=== PATIENT | female | born 1940 | race African-American/Black ===

== ENCOUNTER 2017-05-18 11:17 | Emergency (ER) | payer BC ==
[2017-05-18 11:23] VITALS: BP 151/95; BMI 35.6
[2017-05-18] MEDS ORDERED: ACETAMINOPHEN 500 MG TABLET (FP) PO ONE (12:52)
[2017-05-18] MEDS ORDERED: ACETAMINOPHEN 500 MG TABLET (FP) ONE (13:05)
--- NOTE | 2017-05-18 13:45 | PDOC ---
History of Present Illness - General Chief Complaint: Injury Stated Complaint: RT HAND PAIN Time Seen by Provider: 05/18/17 12:42 History Source: Patient Exam Limitations: No Limitations - History of Present Illness Initial Comments: 05/18/17 13:29 77 yr female with pain, redness, swelling to the right hand. Pt states she was pulling a cart up her back steps when she twisted her hand. This was 4 days ago . Pt had fever and chills last night, c/o pain and redness to the hand. Pt denies abd pain neg urianry complaints, neg URI complaints. Past History - Past Medical History Allergies/Adverse Reactions: Allergies Allergy/AdvReac Type Severity Reaction Status Date / Time No Known Allergies Allergy Verified 05/18/17 11:23 Home Medications: Ambulatory Orders Amlodipine Besylate 10 mg PO DAILY 01/14/16 Glipizide [Glipizide ER] 5 mg PO DAILY 01/14/16 Hydrochlorothiazide [Hctz -] 12.5 mg PO DAILY 01/14/16 Sitagliptin Phos/Metformin HCl [Janumet 50-500 mg Tablet] 1 each PO BID Azithromycin [Zithromax 250mg Tablets -] 500 mg PO DAILY #7 tablet 06/22/16 Cephalexin [Keflex] 250 mg PO QID #28 capsule 05/18/17 Diabetes: Yes GI Disorders: Yes (H/O DIVERTICULITIS) HTN: Yes Other medical history: Arthitis - Surgical History Abdominal Surgery: Yes (HERNIA) Appendectomy: Yes - Suicide/Smoking/Psychosocial Hx Smoking History: Never smoked Have you smoked in the past 12 months: No If you are a former smoker, when did you quit?: 1983 Information on smoking cessation initiated: No Hx Alcohol Use: No Drug/Substance Use Hx: No Substance Use Type: None *Physical Exam - Vital Signs Last Vital Signs Temp Pulse Resp BP Pulse Ox 100.1 F H 132 H 19 151/95 97 05/18/17 11:20 05/18/17 11:20 05/18/17 11:20 05/18/17 11:20 05/18/17 11:20 - Physical Exam General Appearance: Yes: Nourished, Appropriately Dressed HEENT: positive: EOMI, LIZZETTE Neck: positive: Supple. negative: Tender Respiratory/Chest: positive: Lungs Clear, Normal Breath Sounds Cardiovascular: positive: Regular Rhythm, Regular Rate Gastrointestinal/Abdominal: positive: Normal Bowel Sounds, Soft Extremity: positive: Normal Capillary Refill, Swelling, Erythema (dorsal surface hand to wrist flexors, pain with flexion and extension , nv intact, warm , swelling ) Integumentary: positive: Normal Color, Dry, Warm Neurologic: positive: Fully Oriented, Alert, Normal Mood/Affect, Normal Response , Motor Strength 5/5 Procedures - Splinting Chuck Bandage: yes ED Treatment Course - LABORATORY CBC & Chemistry Diagram: 05/18/17 13:45 05/18/17 13:45 - RADIOLOGY Radiology Studies Ordered: Category Date Time Status WRIST W/HAND-RIGHT* [RAD] Stat Radiology 05/18/17 12:50 Taken - Medications Given in the ED: ED Medications Discontinued Medications Generic Name Dose Route Start Last Admin Trade Name Soo PRN Reason Stop Dose Admin Acetaminophen 1,000 mg 05/18/17 12:52 05/18/17 13:16 Tylenol - PO 05/18/17 12:53 1,000 mg ONCE ONE Administration Medical Decision Making - Medical Decision Making 05/18/17 13:33 cc:pain to right wrist for 4 days after twisting the wrist in a shopping cart skin is intact no open areas skin is warm and red with swelling will check labs, xray, pt has chills and fever last night tachycardia 05/18/17 14:24 05/18/17 14:56 vitals rechecked, labs checked will treat with anti inflammatory pain medicine and antibiotics for possible early cellulitus, I have marked the are with surgical marking pen pt is to follow with her PMD tomorrow 05/18/17 14:58 05/18/17 15:11 dc inst verbally given to the son and the pt who agree with the plan to follow up tomorrow for a 24hr check. pt is eating and drinking non toxic will dc home with strict follow up 05/18/17 17:50 *DC/Admit/Observation/Transfer Diagnosis at time of Disposition: Hand pain, right - Discharge Dispostion Disposition: HOME Condition at time of disposition: Improved - Prescriptions Prescriptions: Cephalexin [Keflex] 250 mg PO QID #28 capsule - Referrals Referrals: Alissa Redd MD [Primary Care Provider] - - Patient Instructions Additional Instructions: take the tylenol 650mg every 4hrs for fever or pain elevate the wrist and apply warm compresses take the antibiotics as prescribed for possible early infection see your doctor TOMORROW or RETURN to ER for a follow up visit. Return sooner if any worsening symptoms , redness streaking up your arm , increased pain or swelling or fevers 102 or higher
[2017-05-18 13:58] LABS: BASOPHIL 0.4 % (0-2.0); MCH 25.8 pg (25.7-33.7); MCHC 31.3 g/dl (32.0-36.0); MEAN CELL VOLUME 82.4 fl (80-96); MEAN PLT VOLUME 7.6 fl (7.5-11.1); NEUTROPHILS 76.2 % (42.8-82.8); PLATELET COUNT 272 K/MM3 (134-434); RDW 14.8 % (11.6-15.6); WHITE BLOOD COUNT 12.8 K/mm3 (4.0-10.0)
[2017-05-18] MEDS ORDERED: KETOROLAC TROMETHAMINE 15 MG/ML VIAL IVPUSH ONE (14:25)
[2017-05-18 14:26] LABS: C-REACTIVE PROTEIN 7.4 MG/DL (0.00-0.3); URIC ACID 5.7 mg/dL (2.6-7.2)
[2017-05-18] MEDS ORDERED: KETOROLAC TROMETHAMINE 30 MG/1 ML VIAL IM ONE (14:26)
[2017-05-18 14:27] LABS: ALBUMIN 3.6 g/dl (3.4-5.0); ANION GAP 14 (8-16); CALCIUM 9.1 mg/dL (8.5-10.1); CO2 19 mmol/L (21-32); GLUCOSE,RANDOM 215 mg/dL (74-106); SGOT/AST 17 U/L (15-37)
[2017-05-18 14:30] VITALS: PULSE 100; TEMP 98.9
[2017-05-18 14:30] LABS: ALK PHOS 90 U/L (45-117); BILIRUBIN,TOTAL 0.4 mg/dL (0.2-1.0); CREATININE 1.1 mg/dL (0.55-1.02); SGPT/ALT 16 U/L (12-78); TOT PROT 7.9 g/dl (6.4-8.2)
[2017-05-18 14:35] LABS: URINE APPEARANCE CLOUDY; URINE BILIRUBIN NEGATIVE (NEGATIVE); URINE BLOOD NEGATIVE (NEGATIVE); URINE COLOR AMBER; URINE GLUCOSE (UA) 1+ (NEGATIVE); URINE KETONE TRACE (NEGATIVE); URINE NITRITE NEGATIVE (NEGATIVE); URINE UROBILINOGEN NEGATIVE mg/dL (0.2-1.0)
[2017-05-18 14:53] LABS: URINE PROTEIN 2+ (NEGATIVE)
[2017-05-18] MEDS ORDERED: KETOROLAC TROMETHAMINE 30 MG/1 ML VIAL ONE (14:57)
[2017-05-18 15:00] LABS: URINE BACTERIA FEW /hpf (NONE SEEN); URINE HYALINE CAST 25 /lpf; URINE MUCUS MODERATE; URINE RBC 3 /hpf (0-3); URINE WBC 9 /hpf (3-5)
[2017-05-18] MEDS ORDERED: CEPHALEXIN MONOHYDRATE 500 MG CAPSULE (UD) PO ONE (15:04)
[2017-05-18] MEDS ORDERED: CEPHALEXIN MONOHYDRATE 500 MG CAPSULE (UD) ONE (15:07)
[2017-05-18 17:24] LABS: URINE LEUK ESTERASE Negative (NEGATIVE)
== END 2017-05-18 15:24 | disposition home or self-care (01) ==
LOC: JERFT 11:17
PROC: 3E0233Z Introduction of Anti-inflammatory into Muscle, Percutaneous Approach (ICD-10-PCS; principal; 2017-05-18)
DX: M79.641 Pain in right hand (principal); X50.0XXA Overexertion from strenuous movement or load, initial encounter; Y93.89 Activity, other specified; Y92.89 Other specified places as the place of occurrence of the external cause; Y99.9 Unspecified external cause status; I10 Essential (primary) hypertension; E11.9 Type 2 diabetes mellitus without complications; M12.9 Arthropathy, unspecified; Z87.19 Personal history of other diseases of the digestive system
CPT/HCPCS: 36415; 73110-TC-RT; 73130-TC-RT; 80053; 81003; 81015; 84550; 85025; 85651; 86140; 87040; 96372; 99282-25

== ENCOUNTER 2023-02-17 10:05 | Emergency (ER) | payer BC ==
[2023-02-17 10:18] VITALS: BP 158/74; PULSE 111; RESP 18; TEMP 98.9; BMI 35.1
[2023-02-17] MEDS ORDERED: ACETAMINOPHEN 500 MG TABLET (FP) PO ONE (10:38)
[2023-02-17] MEDS ORDERED: ACETAMINOPHEN 325 MG TABLET (FP) ONE (10:50)
[2023-02-17] MEDS ORDERED: ACETAMINOPHEN 500 MG TABLET (FP) ONE (11:01)
[2023-02-17 12:08] LABS: BASO % 0.4 % (0-2.0); EOS % 0.4 % (0-4.5); HEMATOCRIT 33.2 % (32.4-45.2); HEMOGLOBIN 10.3 GM/dL (10.7-15.3); MCH 25.8 pg (25.7-33.7); MCHC 31.1 g/dl (32.0-36.0); MONO % 10.7 % (3.8-10.2); NEUT % 69.5 % (42.8-82.8); PLATELET COUNT 296 10^3/uL (134-434); RDW 15.1 % (11.6-15.6); WHITE BLOOD COUNT 9.9 K/mm3 (4.0-10.0)
[2023-02-17 12:29] LABS: POTASSIUM 4.8 mmol/L (3.5-5.1)
[2023-02-17 12:42] LABS: BLOOD UREA NITROGEN 18.6 mg/dL (7-18); CALCIUM 9.4 mg/dL (8.5-10.1)
[2023-02-17 12:47] LABS: BILIRUBIN,TOTAL 0.3 mg/dL (0.2-1); TOT PROT 7.5 g/dl (6.4-8.2)
[2023-02-17 12:58] LABS: ERYTHROCYTE SEDIMENTATION RATE 91 mm/hr (0-30)
[2023-02-17] MEDS ORDERED: CEFAZOLIN 1 GM in DEXTROSE 5%-WATER - 50 ML IVPB ONE (12:59)
[2023-02-17] MEDS ORDERED: ceFAZolin SODIUM 1 GM VIAL ONE (13:06)
== END 2023-02-17 13:55 | disposition home or self-care (01) ==
LOC: JER 10:05 → JERFT 10:05
PROC: 3E033GC Introduction of Other Therapeutic Substance into Peripheral Vein, Percutaneous Approach (ICD-10-PCS; principal; 2023-02-17)
DX: R22.32 Localized swelling, mass and lump, left upper limb (principal); L03.114 Cellulitis of left upper limb
CPT/HCPCS: 36415; 73110-TC-LT-FY; 73130-TC-LT-FY; 80053; 85025; 85651; 86140; 99284-25

== ENCOUNTER 2023-02-20 10:22 | Emergency (ER) | payer BC ==
[2023-02-20 10:28] VITALS: BP 154/66; PULSE 87; RESP 18; TEMP 98.1; BMI 35.1
== END 2023-02-20 11:04 | disposition home or self-care (01) ==
LOC: JERFT 10:22
DX: Z48.00 Encounter for change or removal of nonsurgical wound dressing (principal)
CPT/HCPCS: 99281-25